=== PATIENT | female | born 1980 | race Two or more races ===

== ENCOUNTER 2019-08-09 07:31 | Emergency (ER) | payer OTHER ==
[~2019-08-09] VITALS: Ht 170.2 cm; Wt 77.6 kg
[2019-08-09] MEDS ORDERED: IV NORMAL SALINE 1,000ML 1,000 ML IV ONE (08:00)
[2019-08-09 08:27] VITALS: BP 129/80
--- NOTE | 2019-08-09 08:32 | PHYS DOC ---
Past History Past Medical History: No Pertinent History Additional Past Surgical Histo: Bunion surgery Smoking: Non-smoker Alcohol Use: Rarely Drug Use: None General Adult EDM: Chief Complaint: SORE THROAT HPI: HPI: 39-year-old female presents with 3 day history of sore throat and cough with generalized malaise. 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 Denies home sick contacts. Patient denies reports "anything is possible ". Reports she is currently on her period. Denies trauma. Denies recent travel. Review of Systems: Review of Systems: Constitutional: Denies fever or chills; reports generalized malaise Eyes: Denies redness or eye pain HENT: Denies nasal congestion; reports sore throat Respiratory: Reports cough; denies shortness of breath Cardiovascular: Denies chest pain or palpitations GI: Denies abdominal pain, nausea, or vomiting : Denies dysuria or hematuria Musculoskeletal: Denies back pain or joint pain Integument: Denies rash or skin lesions Neurologic: Denies headache, focal weakness or sensory changes Complete systems were reviewed and found to be within normal limits, except as documented in this note. Current Medications: Current Meds: Current Medications Medications (Trade) Dose Ordered Sig/Renae Start Time Stop Time Status Last Admin Dose Admin Sodium Chloride 1,000 ml @ 1,000 mls/hr 1X ONCE 08/09/19 08:00 08/09/19 08:59 UNV Physical Exam: PE: Constitutional: Well developed, well nourished, no acute distress, non-toxic appearance HENT: Normocephalic, atraumatic, oropharynx moist, pharynx erythematous and without exudate Eyes: Conjunctiva normal, no discharge Neck: Normal range of motion, no tenderness, supple, submandibular lymphadenopathy Lungs & Thorax: No respiratory distress, equal chest rise and fall Abdomen: Soft, no tenderness, no guarding/rebound tenderness/distention Skin: Warm, dry, no erythema, no rash Extremities: No tenderness, ROM intact, no edema Neurologic: Alert and oriented X 3, no focal deficits noted Psychologic: Affect normal, judgment normal EKG: EKG: [] Radiology/Procedures: Radiology/Procedures: PROCEDURE: CHEST PA & LATERAL CHEST PA LATERAL Technique: PA and lateral views of the chest were obtained. Clinical History: Cough and fever Comparison: None. Findings: The heart and pulmonary vasculature appear within normal limits. There is subtle perihilar reticular opacities. The pleural margins are clear. Impression: Mild bilateral infiltrates could be early atypical pneumonia. Electronically signed by: Marvin Estrada III, MD (08/09/2019 9:14 AM) [id number] Course & Med Decision Making: Course & Med Decision Making Pertinent Labs and Imaging studies reviewed. (See chart for details) Patient presents with sore throat with associated generalized malaise and cough. History of confirmed COVID19 exposure. Pharynx significantly erythematous. Rapid strep positive. COVID19 swab pending. Chest x-ray without acute finding. Symptoms more likely secondary to strep throat. Symptomatic treatment provided with oral steroid. Augmentin provided. Patient weekend option and therefore work release for today and tomorrow. Patient to self quarantine at home. Patient stable for discharge with outpatient follow-up with PCP. Discussed findings and plan with patient, who acknowledges understanding and agreement. Jose Disclaimer: Jose Disclaimer: This electronic medical record was generated, in whole or in part, using a voice recognition dictation system. Departure Departure: Impression: Primary Impression: Strep pharyngitis Disposition: HOME, SELF-CARE Condition: STABLE Referrals: [facility] (PCP) Patient Instructions: Strep Throat, Qlda-[id number] Scripts Amoxicillin/Potassium Clav (AUGMENTIN 875-125 TABLET) 1 Each Tablet 1 TAB PO BID for Pharyngitis for 7 Days, #14 TAB 0 Refills Prov: ELY SUE DO 08/09/19 ELY SUE DO Aug 09, 2019 08:32
[2019-08-09] MEDS ORDERED: AMOX1TAB61 PO (08:38)
[2019-08-09] MEDS ORDERED: DEXAMETHASONE 4 MG TABLET PO ONE (09:00)
[2019-08-09] MEDS ORDERED: AMOXICILLIN/K CLAV 875/125MG TABLET. PO ONE (09:15)
--- NOTE | 2019-08-09 09:16 | RAD ---
CHEST PA LATERAL Technique: PA and lateral views of the chest were obtained. Clinical History: Cough and fever Comparison: None. Findings: The heart and pulmonary vasculature appear within normal limits. There is subtle perihilar reticular opacities. The pleural margins are clear. Impression: Mild bilateral infiltrates could be early atypical pneumonia. Electronically signed by: Marvin Estrada III, MD (08/09/2019 9:14 AM) [id number]
== END 2019-08-09 08:50 | disposition home or self-care (01) ==
LOC: ER 07:31
DX: J02.0 Streptococcal pharyngitis (principal); B95.0 Streptococcus, group A, as the cause of diseases classified elsewhere; Z20.828 Contact with and (suspected) exposure to other viral communicable diseases
CPT/HCPCS: 71046; 81025; 87635; 87880; 99284; J8540

== ENCOUNTER 2019-12-12 10:33 | Emergency (ER) | payer OTHER ==
[~2019-12-12] VITALS: Ht 162.6 cm; Wt 74.2 kg
[~2019-12-12 10:33] MED LIST: AMOX1TAB61 PO
[2019-12-12 10:42] VITALS: BP 150/83
[2019-12-12] MEDS ORDERED: PRED-220 PO (10:54)
--- NOTE | 2019-12-12 10:54 | PHYS DOC ---
Past History Past Medical History: No Pertinent History Past Surgical History: Other Additional Past Surgical Histo: BUNIONECTOMY Smoking: Non-smoker Alcohol Use: Rarely Drug Use: None General Adult EDM: Chief Complaint: SKIN RASH/ABSCESS HPI: HPI: 39-year-old female presents with rash on her face, chest, bilateral upper extremities, and groin region. She was out weed eating yesterday and believes she got into poison dee or similar. It is intensely pruritic. It is erythematous. She has no other complaints at this time. Review of Systems: Review of Systems: Constitutional: Denies fever or chills Eyes: Denies change in visual acuity HENT: Denies nasal congestion or sore throat Respiratory: Denies cough or shortness of breath Cardiovascular: Denies chest pain or edema GI: Denies abdominal pain, nausea, vomiting, bloody stools or diarrhea : Denies dysuria Musculoskeletal: Denies back pain or joint pain Integument: Rash Neurologic: Denies headache, focal weakness or sensory changes Endocrine: Denies polyuria or polydipsia Lymphatic: Denies swollen glands Psychiatric: Denies depression or anxiety Heart Score: Risk Factors: Risk Factors: DM, Current or recent (<one month) smoker, HTN, HLP, family history of CAD, obesity. Risk Scores: Score 0 - 3: 2.5% MACE over next 6 weeks - Discharge Home Score 4 - 6: 20.3% MACE over next 6 weeks - Admit for Clinical Observation Score 7 - 10: 72.7% MACE over next 6 weeks - Early Invasive Strategies Allergies: Allergies: Allergies Coded Allergies Type Severity Reaction Last Updated Verified cephalexin Allergy Unknown hives 12/12/19 Yes Physical Exam: PE: Constitutional: Well developed, well nourished, no acute distress, non-toxic appearance. [] HENT: Normocephalic, atraumatic, bilateral external ears normal, oropharynx moist, no oral exudates, nose normal. [] Eyes: PERRLA, EOMI, conjunctiva normal, no discharge. [] Neck: Normal range of motion, no tenderness, supple, no stridor. [] Cardiovascular:Heart rate regular rhythm, no murmur [] Lungs & Thorax: Bilateral breath sounds clear to auscultation [] Abdomen: Bowel sounds normal, soft, no tenderness, no masses, no pulsatile masses. [] Skin: Erythematous, vesicular patches on the upper chest, forehead, bilateral arms. [] Back: No tenderness, no CVA tenderness. [] Extremities: No tenderness, no cyanosis, no clubbing, ROM intact, no edema. [] Neurologic: Alert and oriented X 3, normal motor function, normal sensory function, no focal deficits noted. [] Psychologic: Affect normal, judgement normal, mood normal. [] Current Patient Data: Vital Signs: Vital Signs Date Time Temp Pulse Resp B/P (MAP) Pulse Ox O2 Delivery O2 Flow Rate FiO2 12/12/19 10:42 97.4 85 18 150/83 (105) 100 Room Air EKG: EKG: [] Radiology/Procedures: Radiology/Procedures: [] Course & Med Decision Making: Course & Med Decision Making Pertinent Labs and Imaging studies reviewed. (See chart for details) The patient appears to have poison dee or similar plant dermatitis. I will treat her with 10 mg of Decadron IM and a 12-day taper of prednisone. She is stable for discharge at this time. [] Dragon Disclaimer: Dragon Disclaimer: This electronic medical record was generated, in whole or in part, using a voice recognition dictation system. Departure Departure: Impression: Primary Impression: Poison dee dermatitis Disposition: HOME/RESIDENCE PRIOR TO ADM Condition: STABLE Referrals: PCP,RUMA (PCP) Patient Instructions: Poison Dee, Gadr-sx-[id number] Scripts Prednisone (PREDNISONE) 10 Mg Tablet 10 MG PO UD for PREDNISONE TAPER, #36 TAB 0 Refills Take 5 tablets by mouth daily for 3 days, then take 4 tablets by mouth daily for 3 days, then take 2 tablet by mouth daily for 3 days, then take 1 tablet by mouth daily for 3 days, then stop. Prov: KEYON ESCALONA DO 12/12/19 Justification of Admission: Justification of Admission: Justification of Admission Dx: N/A KEYON ESCALONA DO Dec 12, 2019 10:54
[2019-12-12] MEDS ORDERED: DEXAMETHASONE SOD PHOS 10 MG/ML VIAL. IM ONE (11:00)
== END 2019-12-12 11:03 | disposition home or self-care (01) ==
LOC: ER 10:33
DX: L23.7 Allergic contact dermatitis due to plants, except food (principal); Z88.1 Allergy status to other antibiotic agents
CPT/HCPCS: 96372; 99283; J1100